=== PATIENT | female | born 1945 | race Hispanic/Latino ===

== ENCOUNTER 2018-09-20 05:48 | Day surgery (SDC) | payer OTHER ==
[2018-09-14 14:21] LABS: Urine Appearance CLEAR; Urine Bilirubin NEGATIVE (NEG); Urine Blood TRACE (NEG); Urine Color YELLOW; Urine Glucose NEGATIVE (NEG); Urine Protein NEGATIVE (NEG)
[2018-09-14 14:23] LABS: Urine Microscopic Reflex ORDER UMIC
[2018-09-14 14:24] LABS: Absolute Lymphocytes (CBC) 2.4 K/uL (0.7-4.9); Absolute Monocytes 0.6 K/uL (0.1-1.3); Absolute Neutrophil 3.8 K/uL (1.8-8.0); Basophils % 0.9 % (0-1.3); Eosinophils % 2.2 % (0-4.4); Hematocrit 40.2 % (36.0-45.0); Lymphocytes % 34.3 % (15.3-44.8); MPV 11.5 fL (7.6-11.3); Monocytes % 8.8 % (3.3-12.3); RBC Red Blood Cell Count 4.63 M/uL (3.86-4.86)
[2018-09-14 14:29] LABS: Urine Bacteria <20 /HPF (<20); Urine Culture Reflex Order NOT NEEDED
[2018-09-14 14:30] LABS: Protime INR 0.97
[2018-09-14 15:01] LABS: Platelet Estimate ADEQ; Urine White Blood Cell Casts OK
[2018-09-14 15:02] LABS: Blood Morphology Comment NOT SEEN (NOT SEEN)
[2018-09-20 06:42] LABS: Protime INR 0.96
[2018-09-20] MEDS ORDERED: NA CHLORIDE 0.9% 1,000 ML ONE (06:48)
[2018-09-20] MEDS ORDERED: NA CHLORIDE 0.9% 0 ML IV ONE (07:27)
[2018-09-20] MEDS ORDERED: CEFAZOLIN 1GM (PREMIX IV) 1 GM/50 ML BAG ONE (07:27)
[2018-09-20] MEDS ORDERED: VASOPRESSIN 20 UNIT/ML VIAL ONE (07:27)
[2018-09-20] MEDS ORDERED: PROPOFOL 200 MG/20 ML VIAL IV ONE (07:31)
[2018-09-20] MEDS ORDERED: MIDAZOLAM HCL 2 MG/2 ML INJ ONE (07:31)
[2018-09-20] MEDS ORDERED: LIDOCAINE 2% MPF 5 ML VIAL ONE (07:31)
[2018-09-20] MEDS ORDERED: FENTANYL CITR 100 MCG/2 ML ONE (07:31)
[2018-09-20] MEDS ORDERED: ROCURONIUM 50 MG/5 ML VIAL IV ONE (07:32)
[2018-09-20] MEDS ORDERED: ONDANSETRON 4 MG/2 ML VIAL ONE (07:32)
[2018-09-20] MEDS: CEFAZOLIN 2GM (PREMIX IV) 2 GM/50 ML BAG ONE ×3 (07:57→08:09)
[2018-09-20] MEDS: LIDOCAINE 1% W/EPI 1:100,000 MDV 50 ML VIAL ONE ×2 (08:23→08:30)
[2018-09-20] MEDS ORDERED: GLYCOPYRROLATE 0.2 MG/ML SYR ONE ×2 (08:36→09:09)
[2018-09-20] MEDS ORDERED: EPHEDRINE SULF 50 MG/10 ML SYR ONE (08:51)
[2018-09-20] MEDS ORDERED: NEOSTIGMINE 1 MG/ML -10 ML VIAL ONE (09:10)
[2018-09-20] MEDS ORDERED: HYDROCODONE/APAP 5/325 MG TAB ONE (10:22)
--- NOTE | 2018-09-21 00:34 | OP ---
Date of Procedure: 09/20/2018 Surgeon: Jennifer Garcia MD Preoperative Diagnosis: Stress urinary incontinence. Postoperative Diagnosis: Stress urinary incontinence. Procedure Performed: Midurethral sling (tension-free vaginal tape obturator approach), cystoscopy. Anesthesia: General. Specimens: None. Complications: None. Drains: Bolaños catheter. Ebl: 50. Patient's Condition: Stable. Patient's Findings: Prolapse is quite unremarkable. Vaginal lining well estrogenized. Indication: The patient complained with mixed incontinence. She had urgency symptoms as well as str ess urinary incontinence. We have tried her on oral medication Cymbalta, which she did not tolerate and Kegel's exercises were tried. The patient wanted to proceed with surgical treatment. She was co nsented and brought to the hospital. She had a positive cough stress test in the office with a strea m of urine. No prolapse noted. So we discussed about the benefits and risks of a midurethral sling that it could improve urgency incontinence, but that was not the treatment for it. She would have to continue on anticholinergic or overactive bladder medication in the halfway for treatment of that. Stress urinary incontinence is the only thing that the midurethral sling would improve if there is intrinsic sphincter deficiency. 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 Description Of Procedure: After informed consent was verified, patient was brought to the OR. 2 g o f Ancef was given to this patient. She was placed in a supine fashion. After general anesthesia was given, she was placed in a dorsal lithotomy position and pelvic exam was performed. Dictated findin gs as above. Lower abdomen, vulva, vagina, and perineum were prepped and draped in a sterile fashion . Bolaños was placed to drain the bladder and clamped with a Kori clamp. After the midurethral area was identified, 2 Allis clamps were placed on each side. 1% lidocaine mixed with 1:100,000 epinephri ne, 15 cc was injected in the midline as well on each side. The surface markings on the outside for the exit point of the spikes were placed 2 cm outside and 1 cm superior to the horizontal line droppe d at the level of the external urethral meatus. A 1 cm incision was made in the midline with the hel p of a 15 blade. Dissection was performed under the endopelvic fascia at a 45-degree angle to the ho rizontal and vertical planes. Hugging the inferior pubic ramus, obturator space was entered and obtu rator membrane was perforated with the tips of the Kenefic and the track was expanded by opening the sci ssors up, and on the left side similar dissection was performed slightly more difficult to get to und er the superior pubic ramus, but once the obturator membrane was perforated through the track was ope saumya up, the TVT was opened. The wing guide was placed first on the right side spike pass in the appr opriate fashion exit point just slightly below the level of the marking. Then, similar fashion oppos ite side spike was passed without any problems. The sheath was adjusted, the mesh was tensioned in t he middle with the help of Kenefic between the urethra and the sling. The plastic sheaths were pulled o ut after appropriate tensioning was done, then the mesh was cut very flush with the skin. Then vagin al epithelium was closed with the help of 3-0 Vicryl in a continuous running fashion. Bolaños was chandler epifanio. Cystoscopy was performed with a 17-Peruvian sheath, 30-degree lens, and normal saline for distent ion. Both ureteric orifices were visualized and normal streams of urine from there. The entire blad salomón was inspected paying close attention to the lateral aspects. No evidence of any foreign body wit h the mesh. Urethra was inspected on its way out and was intact. The Bolaños was replaced to drain th e bladder. Vaginal packing placed. She will have a voiding trial in 2 hours. She will come back to the office after a week and we will repeat a voiding trial. EBL was minimal. Instrument, needle, a nd sponge counts were correct at the end of the case. The patient was recovered from anesthesia and taken to PACU in a stable condition. PRATEEK/JAMES Voice ID: [id number] Report ID: [id number]
== END 2018-09-20 12:00 | disposition home or self-care (01) ==
LOC: OR 05:48
PROVIDERS: ATTEND Obstetrics & Gynecology
PROC: 0TSD0ZZ Reposition Urethra, Open Approach (ICD-10-PCS; principal; 2018-09-20 07:30)
DX: N39.3 Stress incontinence (female) (male) (principal); E11.9 Type 2 diabetes mellitus without complications; I10 Essential (primary) hypertension; J45.909 Unspecified asthma, uncomplicated; E78.5 Hyperlipidemia, unspecified
CPT/HCPCS: 36415 ×2; 57288; 82962 ×2; 85025; 85610 ×2; 85730 ×3; 86850; 86900; 86901; J0690 ×2; J2250; J2405; J2704; J2710; J3010; J7030; 81003; 81015